=== PATIENT | male | born 1955 | race Caucasian/White ===

== ENCOUNTER 2016-09-09 14:42 | Emergency (ER) | payer OTHER ==
[~2016-09-09] VITALS: Ht 180.3 cm; Wt 119.5 kg
[2016-09-09 14:49] VITALS: BP 163/106; PULSE 96; RESP 16; TEMP 98.3; O2SAT 97
--- NOTE | 2016-09-09 15:09 | PD ---
HPI Chief Complaint: Skin Problem Time Seen by Provider: 14:56 Travel History International Travel<30 days: No Contact w/Intl Traveler<30days: No Traveled to known affect area: No History of Present Illness HPI 60-year-old male presents to the emergency department with recurrent erythematous itchy lesions which she's been getting over the past 2 weeks. Patient is staying at a local motel having moved down here from she sits. He is getting established with a local primary care physician tomorrow. Patient states they coming to our itchy, but his does not seem to get them. Patient is known to have hypertension and currently on amlodipine 5 mg as well as lisinopril 10 mg daily. He has no fever, chills, or other constitutional symptoms. He is allergic to penicillin. [facility] Social History Alcohol Use: Yes Tobacco Use: Yes Substance Use: No Allergies-Medications (Allergen,Severity, Reaction): Coded Allergies: Penicillin (Verified Allergy, Severe, 09/09/16) TOLD ALLERGIC TO CHILD Review of Systems Except as stated in HPI: all other systems reviewed are Neg General / Constitutional: No: Fever Eyes: No: Visual changes HENT: No: Headaches Cardiovascular: No: Chest Pain or Discomfort Respiratory: No: Shortness of Breath Gastrointestinal: No: Abdominal Pain Genitourinary: No: Dysuria Musculoskeletal: No: Pain Skin: No Rash Neurologic: No: Weakness Psychiatric: No: Depression Endocrine: No: Polydipsia Hematologic/Lymphatic: No: Easy Bruising Physical Exam Narrative GENERAL: Patient appears in no acute distress. SKIN: Warm and dry. Normal color. Normal turgor. Patient has multiple slightly raised erythematous lesions to the anterior abdomen, right upper arm forearm, and left forearm as well as his back consistent with insect bites. There is no sign of cellulitis, or abscess. HEAD: Atraumatic. Normocephalic. EYES: Pupils equal and round. No scleral icterus. No injection or drainage. ENT: No nasal bleeding or discharge. Mucous membranes pink and moist. Pharynx is clear. NECK: Trachea midline. Supple and nontender. CARDIOVASCULAR: Regular rate and rhythm. RESPIRATORY: No accessory muscle use. Clear to auscultation. Breath sounds equal bilaterally. MUSCULOSKELETAL: Extremities without clubbing, cyanosis, or edema. No obvious deformities. NEUROLOGICAL: Awake and alert. No obvious cranial nerve deficits. Motor grossly within normal limits. Five out of 5 muscle strength in the arms and legs. Normal speech. PSYCHIATRIC: Appropriate mood and affect; insight and judgment normal. Data Data Last Documented VS Vital Signs Date Time Temp Pulse Resp B/P Pulse Ox O2 Delivery O2 Flow Rate FiO2 09/09/16 14:49 98.3 96 16 163/106 97 MDM Medical Decision Making Medical Screen Exam Complete: Yes Emergency Medical Condition: Yes Differential Diagnosis Recurrent insect bites. Presumed bedbugs. Hypertension. Narrative Course Patient is medically stable at time of exam. Patient blood pressure slightly elevated for which she is recommended to take an extra amlodipine today. Patient will follow-up on his blood pressure issue tomorrow with his primary care physician. Patient is felt to have recurrent bedbug bites, which are not felt to be dangerous. Recommend insect repellent prior to bed, and perhaps change living arrangements. Patient follow-up with his primary care physician tomorrow as scheduled. Patient can return to emergency Department with worsening symptoms as necessary. Diagnosis Primary Impression: Insect bite Qualified Code: W57.XXXA - Insect bite, initial encounter Additional Impression: Hypertension Qualified Code: I10 - Essential hypertension Referrals: Primary Care Physician Patient Instructions: General Instructions, Hypertension (ED), Insect Bite or Sting (ED) Additional Instructions: Patient blood pressure slightly elevated for which she is recommended to take an extra amlodipine today. Patient will follow-up on his blood pressure issue tomorrow with his primary care physician. Patient is felt to have recurrent bedbug bites, which are not felt to be dangerous. Recommend insect repellent prior to bed, and perhaps change living arrangements. Patient follow-up with his primary care physician tomorrow as scheduled. Patient can return to emergency Department with worsening symptoms as necessary. Med/Other Pt SpecificInfo: No Meds Exist/No RX given Disposition: 01 DISCHARGE HOME Condition: Stable Jeremie Arizmendi September 09, 2016 15:09
[2016-09-09] MEDS ORDERED: PROZ40CA PO (15:17)
[2016-09-09] MEDS ORDERED: TIOT12.9 INH (15:17)
[2016-09-09] MEDS ORDERED: GLYB5TAB3 PO (15:17)
[2016-09-09] MEDS ORDERED: AMLO10TA2 PO (15:17)
[2016-09-09] MEDS ORDERED: BUSP10TA PO (15:17)
[2016-09-09] MEDS ORDERED: ALBU0.08 NEB (15:17)
[2016-09-09] MEDS ORDERED: PERP16TA6 PO (15:17)
[2016-09-09] MEDS ORDERED: LISI-515 PO (15:17)
[2016-09-09] MEDS ORDERED: FLUTI220I INH (15:17)
[2016-09-09] MEDS ORDERED: METF1000 PO (15:17)
[2016-09-09] MEDS ORDERED: IPRA17I INH (15:17)
== END 2016-09-09 15:39 | disposition home or self-care (01) ==
LOC: PHEFT 14:42
DX: I10 Essential (primary) hypertension (principal); S30.861A Insect bite (nonvenomous) of abdominal wall, initial encounter; S50.862A Insect bite (nonvenomous) of left forearm, initial encounter; S50.861A Insect bite (nonvenomous) of right forearm, initial encounter; S20.462A Insect bite (nonvenomous) of left back wall of thorax, initial encounter; S20.461A Insect bite (nonvenomous) of right back wall of thorax, initial encounter; Z72.0 Tobacco use; W57.XXXA Bitten or stung by nonvenomous insect and other nonvenomous arthropods, initial encounter; Y92.59 Other trade areas as the place of occurrence of the external cause
CPT/HCPCS: 99283